=== PATIENT | male | born 1995 | race African-American/Black ===

== ENCOUNTER 2018-06-24 16:20 | Emergency (ER) | payer SELFPAY ==
[~2018-06-24] VITALS: Ht 177.8 cm; Wt 98.0 kg
[2018-06-24 17:40] VITALS: BP 129/67
== END 2018-06-24 17:40 | disposition home or self-care (01) | DRG 951 ==
LOC: ED 16:20
DX: Z20.2 Contact with and (suspected) exposure to infections with a predominantly sexual mode of transmission (principal)